=== PATIENT | male | born 1975 | race Caucasian/White ===

== ENCOUNTER 2018-01-02 14:48 | Emergency (ER) | payer OTHER ==
[2018-01-02] MEDS ORDERED: TDAP ADULT 0.5 ML INJ (BOOSTRIX) IM ONE (15:01)
--- NOTE | 2018-01-02 15:10 | EDPHY ---
H & P Time Seen by Provider: 01/02/18 14:56 HPI/ROS: Chief complaint: Left thumb laceration History of present illness: This 42-year-old male presents to emergency department after cutting his thumb in a table saw just prior to arrival. He was cutting the frame of the door. He does not think there is any would in the wound. It is throbbing and he rates the pain at approximately 4/10. His tetanus is not up-to-date. No other injuries. REVIEW OF SYSTEMS: Unremarkable Past Medical/Surgical History: Past medical history: Denied Past surgical history: Right ankle surgery, right hand surgery Family history: Denied No known drug allergies Medications: None Primary care provider is Dr. Mariano Salazar Social History: Patient does not use tobacco products. He has an occasional alcoholic beverage. No marijuana use. Smoking Status: Former smoker Physical Exam: General: Alert and Oriented x 3, in NAD HEENT: normocephalic, atraumatic CV: Normal peripheral perfusion Pulm: Non-labored breathing Musculoskeletal: Irregular, flap laceration tip of left thumb, 0.75 cm, bleeding controlled. CMS intact Neuro: non-focal Constitutional: Initial Vital Signs Temperature (C) 97.9 F 01/02/18 14:57 Heart Rate 91 01/02/18 14:57 Respiratory Rate 18 01/02/18 14:57 Blood Pressure 158/106 H 01/02/18 14:57 O2 Sat (%) 96 01/02/18 14:57 O2 Delivery Mode Room Air Allergies/Adverse Reactions: No Known Allergies Allergy (Verified 12/20/15 08:22) Home Medications: Medication Instructions Recorded Cephalexin 500 mg PO QID 7 Days #28 tablet 01/02/18 Medical Decision Making - Diagnostics Imaging Results: Left thumb: No fx, No FB Procedures: Laceration Repair Left Thumb: Under the usual sterile precautions, the wound was anesthetized by digital block using 3.5 ml Plain 2% Lidocaine. The wound was thoroughly cleansed by nursing staff then prepped and draped and cleansed again by myself. The wound was explored with no evidence of foreign body. The wound was then repaired with #4 4.0 Prolene simple interrupted sutures. The patient tolerated the procedure well. A sterile dressing was placed by the qc lab technician. ED Course/Re-evaluation: The patient was seen and examined. Vital signs reviewed. X-ray of thumb without fracture or FB. Tetanus booster administered. Lac repaired (see procedure note). D/C instructions reviewed. Differential Diagnosis: DDX includes but not limited to: Laceration, foreign body, janie fracture - Data Points Medications Given: Discontinued Medications Diphtheria/Tetanus/Acell Pertussis (Boostrix) 0.5 ml IM .ONCE ONE Stop: 01/02/18 15:02 Last Admin: 01/02/18 15:07 Dose: 0.5 ml Departure - Departure Disposition: Home, Routine, Self-Care Clinical Impression: Laceration of left thumb without complication Condition: Good Instructions: Care For Your Stitches (ED), Finger Laceration (ED) Additional Instructions: Keep wound clean and dry. Wear a metal finger-tip protector if possible. Start antibiotic if wound starts looking infected and seek immediate re- evaluation. Otherwise, suture removal in 10 days. Also, your blood pressure was high today. Have your primary care provider recheck your blood pressure at your follow up visit or within 2 - 4 weeks maximum. Referrals: MARIANO JOSHI [Primary Care Provider] - As per Instructions Prescriptions: Cephalexin 500 mg PO QID 7 Days #28 tablet
[2018-01-02 15:58] VITALS: RESP 18; TEMP 97.9; O2SAT 96
[2018-01-02 18:29] VITALS: BP 155/105; PULSE 85
== END 2018-01-02 17:13 | disposition home or self-care (01) ==
LOC: CED 14:48
PROC: 0HQGXZZ Repair Left Hand Skin, External Approach (ICD-10-PCS; principal; 2018-01-02)
DX: S61.012A Laceration without foreign body of left thumb without damage to nail, initial encounter (principal); Z23 Encounter for immunization; Z87.891 Personal history of nicotine dependence; W31.1XXA Contact with metalworking machines, initial encounter; Y99.0 Civilian activity done for income or pay
CPT/HCPCS: 73140-PO